=== PATIENT | female | born 1935 | race Caucasian/White ===

== ENCOUNTER 2016-03-31 15:26 | Emergency (ER) | payer MEDICARE, BC ==
[2016-03-31] MEDS ORDERED: diphenhydrAMINE HCL 50 MG/ML VIAL ONE (15:33)
[2016-03-31] MEDS ORDERED: METHYLPREDNISOLONE SOD SUCC/PF 125 MG/2 ML VIAL ONE (15:33)
[2016-03-31] MEDS ORDERED: EPINEPHrine 1 MG/ML AMPUL ONE (15:33)
[2016-03-31] MEDS ORDERED: FAMOTIDINE 10 MG/ML VIAL IV ONE ×2 (15:33→15:42)
[2016-03-31] MEDS ORDERED: EPINEPHrine 1 MG/ML AMPUL SC ONE (15:37)
[2016-03-31] MEDS ORDERED: diphenhydrAMINE HCL 50 MG/ML VIAL IV ONE (15:42)
[2016-03-31] MEDS ORDERED: METHYLPREDNISOLONE SOD SUCC/PF 40 MG/ML VIAL IV ONE (15:42)
[2016-03-31] MEDS ORDERED: ONDANSETRON HCL/PF 2 MG/ML VIAL ONE (15:45)
[2016-03-31] MEDS ORDERED: ALBUTEROL SULFATE 2.5 MG/0.5 ML VIAL.NEB IH ONE ×2 (15:46→15:53)
[2016-03-31] MEDS ORDERED: ONDANSETRON HCL/PF 2 MG/ML VIAL IV ONE (15:50)
--- NOTE | 2016-03-31 18:04 | ERNOTE ---
Allergy Symptoms - ER Date of Service: 03/31/16 Presenting Symptoms: skin rash Time Seen by Provider: 03/31/16 15:32 Source: patient Immunizations: IMMUNIZATION HX Immunizations Up to Date Yes History of Influenza Vaccine Yes Hx Pneumococcal Vaccination Yes Allergies/Adverse Reactions: Allergies Kwowaam-Get-Ymz Reductase Inhibitor Adverse Reaction (Verified 08/11/15 13:32) Nausea Home Medications: HOME MEDICATIONS Aspirin [Aspirin Enteric Coated] 81 mg PO DAILY 08/11/15 [Last Taken Unknown] Flaxseed [Numoisyn] 300 ml MM DAILY 08/11/15 [Last Taken Unknown] Metoprolol Tartrate [Lopressor] 50 mg PO TID 08/11/15 [Last Taken Unknown] [place]-3 Fatty Acids [Fish Oil] 500 mg PO DAILY 08/11/15 [Last Taken Unknown] Epinephrine [Epipen 2-Fawad] 0.3 mg IM ONCE PRN #2 dis.syr 03/31/16 [Last Taken Unknown] Prednisone 50 mg PO QDIPM #5 tablet 03/31/16 [Last Taken Unknown] diphenhydrAMINE HCL [Benadryl] 25 mg PO Q6H PRN #30 cap 03/31/16 [Last Taken Unknown] - History of Present Illness Narrative: Patient presents to the ED with an allergic reaction. This began after taking her minocycline. She takes this occasionally but has never had this reaction. No other acute exposures. She began to have skin redness and itching then felt like her throat was swelling This happened just [employer]. She has never had anything like this before. No CP. No abdominal pain. This has been progressively worse since onset. Has not seen anyone else for this. 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 Location skin rash/itching: Present: diffuse, "redness" Location swelling: Present: none Severity shortness of breath: Present: mild Severity trouble swallowing/speaking: Present: mild Identified cause?: Yes Exposure: Present: other - see narrative Modifying Factors (Improves): Reports: nothing Modifying Factors (Worsens): Reports: nothing Review of Systems - Review of Systems Constitutional: Absent: fever ENT: Absent: See HPI Respiratory: Present: See HPI, shortness of breath Cardiology: Absent: chest pain Gastrointestinal/Abdominal: Absent: abdominal pain Genitourinary: Absent: dysuria Skin: Present: See HPI - Patient's Past Medical History Patient History - Medical: Diabetes Type 2 Patient History - Cardiac/Respiratory: Hyperlipidemia Patient History - Cancer: No Hx of Cancer Patient History - Surgical Procedures: Appendectomy, Colonoscopy, Hysterectomy, Other Patient History - Other: None - Social History Living Situations: home Smoking Status: Never smoker Alcohol Use: none Drug Use: none - Immunizations Immunizations Up to Date: Yes Hx Pneumococcal Vaccination: Yes History of Influenza Vaccine: Yes Physical Exam - Physical Exam General Appearance: Present: alert, no apparent distress Eye Exam: Normal inspection: bilateral, PERRL: bilateral Ears, Nose, Throat: Present: other - There is no swelling of the lips/face tongue or psoterior oropharyngeal structures. No abnormalities by inspection.. Absent: dry mucous membranes Neck: Present: normal inspection Respiratory: Present: no respiratory distress, normal breath sounds, no accessory muscle use, lungs clear. Absent: respiratory distress, rales, rhonchi , stridor, wheezing Cardiovascular/Chest: Present: regular rate, rhythm, normal peripheral pulses Gastrointestinal/Abdominal: Present: normal bowel sounds, nontender, nondistended, soft. 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 Absent: motor weakness Skin Exam: Present: other - diffuse urticarial reaction - scattered ED Progress - Vital Signs Patient's Vital Signs:: I have reviewed the patient's vital signs. Vital Signs: Vital Signs 03/31/16 03/31/16 15:30 16:54 Temperature 35.8 C L Pulse Rate 70 63 Respiratory 18 18 Rate Blood Pressure 160/64 157/58 O2 Sat by Pulse 93 97 Oximetry - Progress/Reassessment Chief Complaint: Allergic Reaction Progress:: Improved Progress Note-Subjective: 03/31/16 17:57 At 1800, Sx free, no SOB, no throat or airway Sx. No residual rash. 03/31/16 18:48 At 1850. patient Sx free. She wants to go home. I offered her overnight observation but she declines this, understands risks and benefits. She wishes to go home. I discussed EpiPen with her. I discussed warning signs and reasons to return as well as the need for close f/u. Departure Clinical Impression: Allergic reaction - Departure Disposition: Home self-care Condition: Stable Instructions: Allergies, [id number] Additional Instructions: Medications as directed. EpiPen if needed. Do not take the medication you reacted to again. Follow-up with your doctor sunday for a re-check. Return if you change your mind about observation, develop rash, trouble breathing or swallowing or if your condition worsens or changes in any way. Referrals: Alicia Sears, RAIL DOWELING MACHINE OPERATOR [Primary Care Provider] - Prescriptions: Epinephrine [Epipen 2-Fawad] 0.3 mg IM ONCE PRN #2 dis.syr PRN Reason: Anaphylaxis Prednisone 50 mg PO QDIPM #5 tablet diphenhydrAMINE HCL [Benadryl] 25 mg PO Q6H PRN #30 cap PRN Reason: Allergic Reaction
[2016-04-01 01:30] VITALS: BP 137/67
== END 2016-03-31 18:50 | disposition home or self-care (01) ==
LOC: ER 15:26
DX: L27.0 Generalized skin eruption due to drugs and medicaments taken internally (principal); T36.4X5A Adverse effect of tetracyclines, initial encounter